=== PATIENT | male | born 1995 | race Asian ===

== ENCOUNTER 2017-06-23 23:14 | Emergency (ER) | payer OTHER ==
[~2017-06-23] VITALS: Wt 77.0 kg
[~2017-06-23 23:14] MED LIST: FLEXERIL 1010 MG/TAB PO; NORCO 325 MG-51 TAB PO
[2017-06-23 23:20] VITALS: BP 127/76; PULSE 83; TEMP 97.3
[2017-06-24] MEDS ORDERED: CEPHALEXIN500 M1 PO (00:03)
== END 2017-06-24 00:08 | disposition home or self-care (01) ==
LOC: COL.ER 23:14
DX: J02.9 Acute pharyngitis, unspecified (principal); Z87.891 Personal history of nicotine dependence

== ENCOUNTER → 2017-07-31 | Outpatient (CLI) | payer OTHER ==
[~2017-07-31] MED LIST changes: +CEPHALEXIN500 M1 PO
== END ==
LOC: COL.RAD 09:25
DX: S83.511A Sprain of anterior cruciate ligament of right knee, initial encounter (principal); S83.411A Sprain of medial collateral ligament of right knee, initial encounter; R60.0 Localized edema

== ENCOUNTER → 2018-08-18 | Emergency (ER) | payer OTHER ==
[~2018-08-18] VITALS: Ht 158 cm; Wt 68.2 kg
[2018-08-18 12:34] VITALS: BP 135/88; PULSE 76; TEMP 98.4
== END ==
LOC: COL.ER 12:28
DX: S61.301A Unspecified open wound of left index finger with damage to nail, initial encounter (principal); W26.0XXA Contact with knife, initial encounter; Y92.009 Unspecified place in unspecified non-institutional (private) residence as the place of occurrence of the external cause

== ENCOUNTER 2019-06-20 07:56 | Emergency (ER) | payer OTHER ==
[~2019-06-20] VITALS: Ht 65 cm; Wt 70.0 kg
[2019-06-20 08:00] VITALS: BP 146/80; PULSE 87; TEMP 99.4
[2019-06-20 08:42] LABS: STREP SCREEN NEGATIVE
== END 2019-06-20 09:13 | disposition home or self-care (01) ==
LOC: COL.ER 07:56
PROVIDERS: Nurse Practitioner
DX: B34.9 Viral infection, unspecified (principal); F17.210 Nicotine dependence, cigarettes, uncomplicated

== ENCOUNTER → 2020-03-22 | Outpatient (CLI) | payer OTHER | LOC: COL.RAD 13:15 | DX: S83.282A Other tear of lateral meniscus, current injury, left knee, initial encounter (principal) ==

== ENCOUNTER 2021-07-05 09:38 | Emergency (ER) | payer SELFPAY ==
[~2021-07-05] VITALS: Ht 167.6 cm; Wt 70.0 kg
[2021-07-05 09:51] VITALS: TEMP 96
[2021-07-05 10:43] LABS: BASO % 0.3 % (0.0-2.0); GRAN # 9.6 (1.4-6.5); GRAN % 89.5 % (42.2-75.2); HEMATOCRIT 46.1 % (42.0-52.0); HEMOGLOBIN 16.2 g/dl (13.5-18.0); LYMPH # 0.8 (1.2-3.4); LYMPH % 7.5 % (20.0-51.0); MEAN CELL VOLUME 89 fl (80.0-100.0); MEAN CORPUSCULAR HEMOGLOBIN 31 pg (27.0-31.0); MEAN CORPUSCULAR HGB CONC 35 g/dl (33.0-37.0); MEAN PLATELET VOLUME 10.4 fl (7.4-10.4); MONO # 0.2 (0.1-0.6); PLATELET COUNT 312 K/mm3 (130-400); RED BLOOD COUNT 5.19 M/mm3 (4.20-5.60); REDCELL DISTRIBUTION WIDTH-CV 11.9 % (11.5-14.5)
[2021-07-05 10:44] LABS: COLLECTION METHOD CLEAN CATCH
[2021-07-05 10:50] LABS: ALANINE AMINOTRANSFERASE 34 U/L (4-49); ALBUMIN 5.3 gm/dL (3.5-5.0); ALKALINE PHOSPHATASE 121 U/L (50-136); ANION GAP 16 mmol/L (7-16); AST,SGOT 29 U/L (15-37); BILIRUBIN,TOTAL 0.6 mg/dL (0.0-1.0); BLOOD UREA NITROGEN 14 mg/dL (9-20); CALCIUM 9.1 mg/dL (8.4-10.2); CARBON DIOXIDE 23 mmol/L (22-30); CHLORIDE 101 mmol/L (98-107); CREATININE, serum 0.96 (0.66-1.25); GLUCOSE 145 mg/dL (74-106); LIPASE 29 U/L (23-300); POTASSIUM 4.4 mmol/L (3.4-5.0); SODIUM 140 mmol/L (137-145); TOTAL PROTEIN 8.5 gm/dL (6.4-8.2)
[2021-07-05 10:54] LABS: C-REACTIVE PROTEIN < 0.5 mg/dL (0.0-0.9)
[2021-07-05] MEDS ORDERED: ZOFRAN ODT4 MG PO (11:08)
[2021-07-05] MEDS ORDERED: PRILOSEC 20MG20 MG PO (11:08)
[2021-07-05 11:10] LABS: AMORPHOUS CRYSTAL Present /uL; MUCOUS Present /lpf; PH 6 (5-8); SQUAMOUS EPITHELIAL None Seen /hpf; URINE APPEARANCE Turbid; URINE BACTERIA None Seen /hpf; URINE BILIRUBIN Negative (NEGATIVE); URINE BLOOD Negative (NEGATIVE); URINE CALCIUM OXALATE CRYSTAL Present /hpf; URINE COLOR Yellow; URINE GLUCOSE 2+ (NEGATIVE); URINE KETONE 1+ (NEGATIVE); URINE LEUKOCYTE ESTERASE Negative (NEGATIVE); URINE NITRATE Negative (NEGATIVE); URINE PROTEIN(semi-quant) 2+ (NEGATIVE); URINE RBC 0-2 /hpf; URINE UROBILINOGEN Negative (NEGATIVE)
[2021-07-05 11:45] VITALS: BP 124/80; PULSE 86
== END 2021-07-05 11:45 | disposition home or self-care (01) ==
LOC: COL.ER 09:38
PROVIDERS: Family Medicine
DX: K29.70 Gastritis, unspecified, without bleeding (principal); E86.0 Dehydration
CPT/HCPCS: C9113; J2405; J3010; J7120